=== PATIENT | female | born 1955 | race Caucasian/White ===

== ENCOUNTER 2024-06-25 10:56 | Emergency (ER) | payer OTHER ==
[~2024-06-25] VITALS: Ht 170.2 cm; Wt 54.4 kg
[2024-06-25 11:00] VITALS: BP_SYST 163; PULSE 81; RESP 22; TEMP 98.3; O2SAT 98
[2024-06-25] MEDS: DIPHTH,PERTUSS(ACELL),TET VAC 0.5 ML VIAL (Tdap) I.M. ONE (11:27)
[2024-06-25] MEDS ORDERED: MECL-225 PO (11:37)
[2024-06-25] MEDS ORDERED: BACITRACIN 1 GM OINT TP ONE (11:55)
[2024-06-25] MEDS ORDERED: CEPH250C PO (12:04)
[2024-06-25 12:18] VITALS: BP_SYST 163; PULSE 81; RESP 22; TEMP 98.3; O2SAT 98
== END 2024-06-25 12:19 | disposition home or self-care (01) ==
LOC: SED 10:56
DX: S62.633B Displaced fracture of distal phalanx of left middle finger, initial encounter for open fracture (principal); Z23 Encounter for immunization; Z79.2 Long term (current) use of antibiotics; W22.8XXA Striking against or struck by other objects, initial encounter; Y93.89 Activity, other specified; Y92.89 Other specified places as the place of occurrence of the external cause; Y99.8 Other external cause status
CPT/HCPCS: 90715; 99284